=== PATIENT | male | born 1950 | race Hispanic/Latino ===

== ENCOUNTER → 2019-04-28 | Day surgery (SDC) | payer MEDICARE, OTHER ==
[2019-04-26 11:52] LABS: BASOPHILS % 0.4 % (0.0-1.0); EOSINOPHILS # (AUTO) 0.1 (0.0-0.4); EOSINOPHILS % 1.5 % (0.0-6.0); HEMATOCRIT 42.6 % (38.2-49.6); HEMOGLOBIN 13.1 g/dL (14.0-18.0); LYMPHOCYTES # (AUTO) 2.4 (1.0-3.2); LYMPHOCYTES % 30.6 % (18.0-39.1); MEAN CORPUSCULAR HEMOGLOBIN 25.4 pg (28-32); MEAN CORPUSCULAR HGB CONC 30.8 g/dL (31-35); MEAN CORPUSCULAR VOLUME 82.6 fL (81-99); MONOCYTES # (AUTO) 0.9 (0.2-0.8); MONOCYTES % 11.3 % (4.4-11.3); NEUTROPHILS # (AUTO) 4.4 (2.1-6.9); NEUTROPHILS % 55.7 % (38.7-80.0); PLATELET COUNT 205 x10e3/uL (140-360); RED BLOOD COUNT 5.16 x10e6/uL (4.3-5.7); RED CELL DISTRIBUTION WIDTH 15.8 % (11.7-14.4)
[2019-04-26 12:06] LABS: ALANINE AMINOTRANSFERASE 18 IU/L (0-55); ALBUMIN 3.8 g/dL (3.5-5.0); ALKALINE PHOSPHATASE 91 IU/L (40-150); BLOOD UREA NITROGEN 16 mg/dL (7-26); BUN/CREATININE RATIO 16 (6-25); CALCIUM 9.4 mg/dL (8.4-10.2); CARBON DIOXIDE 29 mmol/L (22-29); CHLORIDE 98 mmol/L (98-107); CREATININE, SERUM 0.98 mg/dL (0.72-1.25); EST GLOMERULAR FILTRATION RATE > 60 ML/MIN (60-); GLUCOSE 185 mg/dL (74-118); SODIUM 135 mmol/L (136-145)
[~2019-04-28] VITALS: Ht 160 cm; Wt 94.3 kg
[2019-04-28] VITALS (14 sets, daily range): BP systolic 103–132; BP diastolic 60–87
[~2019-04-28] MED LIST: ALPRAZOLAM 0.5 MG TAB ONE; ASPIRIN 325 MG TAB ONE; ASPIRIN EC81 MG PO; ATORVASTATIN CA20 MG PO; BIVALRIUDIN 250 MG/VIAL VIAL IV ONE; BUPROPION XL150 MG PO; BYDUREON BCISE SC; DIPHENHYDRAMINE HCL 25 MG CAP ONE; FENTANYL CITRATE/PF 100MCG/2 ML INJ ONE; FLOMAX0.4 MG PO; HEPARIN SOD/SOD CHLORIDE 2,000 ML ONE; HYZAAR 50-12.51 EACH PO; IOPAMIDOL 300MG/ML 100 ML INFUS..BTL IV ONE; Jardiance PO; LEXAPRO10 MG PO; LIDOCAINE HCL 2% LOCAL 20 ML VIAL ONE; METFORMIN HCL500 MG PO; METOPROLOL TART25 MG PO; MIDAZOLAM HCL 2 MG/2 ML VIAL ONE; OMEPRAZOLE20 MG PO; PIOGLITAZONE HC45 MG PO; PRASUGREL 10 MG TAB ONE; SODIUM CHLORIDE 0.9% 1000ML 1,000 ML ONE; SODIUM CHLORIDE 0.9% 50ML 50 ML ONE; WELLBUTRIN SR150 MG PO; [UNRECOGNIZED DRUG - OTHER] PO
--- OUTSIDE RECORDS SUMMARY | 2019-04-28 11:29 | XMS REPORT | Continuity of Care Document ---
Author Author [employer] Address Unknown Phone Unavailable Care Team Providers Care Ceramist Name Role Phone [employer] Unavailable Unavailable Problems Problem Status Onset Date Classification Date Reported Comments Source M25.519 Active 03/15/[address] [facility] Discharge Diagnosis: Foot abscess, right 01/15/2014 01/17/2014 [facility] ABSCESS Active 01/15/[address] [facility] Carotid endarterectomy (procedure) Resolved Problem 03/18/[address] [facility] Chest pain (finding) Active Problem 03/18/[address] [facility] Diabetes mellitus (disorder) Active Problem 03/18/[address] [facility] Hypertensive disorder, systemic arterial (disorder) Resolved Problem 03/18/[address] [facility] Open heart surgery (procedure) Resolved Problem 03/18/[address] [facility] Pain (finding) Active Problem 03/18/[address] [facility] Smoker (finding) Active Problem 03/18/[address] [facility] PAIN IN UNSPECIFIED SHOULDER Active [facility] Medications Medication Details Route Status Patient Instructions Ordering Provider Order Date Source Acetaminophen 325 MG / Hydrocodone Bitartrate 5 MG Oral Tablet [[place] 5/325] 1-2 tab, PO, Q4-6H, Pain, # 12 tab, 0 Refill(s) Active 01/15/[address] [facility] clindamycin 300 mg oral capsule 300 mg=1 cap, PO, Q6H, # 40 cap, 0 Refill(s) Active 01/15/[address] [facility] Morphine 4 mg, 1 mL, Route: IM, Drug form: INJ, ONCE, Dosing Weight 97.727, kg, Priority: STAT, Start date: 01/15/14 14:34:00, Stop date: 01/15/14 14:34:00Notes: (Same as:MORPhine Sulfate) Inactive 01/15/[address] [facility] Allergies, Adverse Reactions, Alerts Substance Category Reaction Severity Reaction type Status Date Reported Comments Source penicillins Assertion Drug allergy Active [facility] Immunizations No Data Provided for This Section Results Order Name Results Value Reference Range Date Interpretation Comments Source CHEM PANEL eGFR 64 01/15/2014 <sup>1</sup>Result Comment: The eGFR is calculated using the CKD-EPI formula. In most young, healthy individuals the eGFR will be >90 mL/min/1.73m2. The eGFR declines with age. An eGFR of 60-89 may be normal in some populations, particularly the elderly, for whom the CKD-EPI formula has not been extensively validated. Use of the eGFR is not recommended in the following populations:& lt;br/>
Individuals with unstable creatinine concentrations, including patients and those with serious co-morbid conditions.

Patients with extremes in muscle mass or diet.

The data above are obtained from the National Kidney Disease Education Program (NKDEP) which additionally recommends that when the eGFR is used in patients with extremes of body mass index for purposes of drug dosing, the eGFR should be multiplied by the estimated BMI. [facility] CHEM PANEL Chloride Lvl 102 95 - 109 01/15/[address] [facility] CHEM PANEL Potassium Lvl 4.3 3.5 - 5.1 01/15/[address] [facility] CHEM PANEL Sodium Lvl 135 135 - 145 01/15/[address] [facility] CHEM PANEL CO2 26 24 - 32 01/15/[address] [facility] CHEM PANEL Calcium Lvl 8.3 8.5 - 10.5 01/15/[address] [facility] CHEM PANEL Creatinine Lvl 1.2 0.5 - 1.4 01/15/[address] [facility] CHEM PANEL Glucose Lvl 334 70 - 99 01/15/2014 <sup>2</sup>Interpretive Data: Adult reference range values reflect the clinical guidelines
of the [place] [employer]. [facility] CHEM PANEL BUN 22 7 - 22 01/15/[address] [facility] CHEM PANEL AGAP 11.3 10.0 - 20.0 01/15/[address] [facility] HEMATOLOGY MCHC 34.5 32.0 - 36.0 01/15/[address] [facility] HEMATOLOGY MPV 9.0 7.4 - 10.4 01/15/[address] [facility] HEMATOLOGY Platelet 163 133 - 450 01/15/[address] [facility] HEMATOLOGY RDW 12.5 11.5 - 14.5 01/15/[address] [facility] HEMATOLOGY MCH 31.4 27.0 - 31.0 01/15/[address] [facility] HEMATOLOGY MCV 90.9 80.0 - 94.0 01/15/[address] [facility] HEMATOLOGY Hct 43.1 42.0 - 54.0 01/15/[address] [facility] HEMATOLOGY Hgb 14.9 14.0 - 18.0 01/15/[address] [facility] HEMATOLOGY RBC 4.74 4.70 - 6.10 01/15/[address] [facility] HEMATOLOGY WBC 7.9 3.7 - 10.4 01/15/[address] [facility] HEMATOLOGY Lymphocytes 27.0 20.0 - 40.0 01/15/[address] [facility] HEMATOLOGY Segs 63.8 45.0 - 75.0 01/15/[address] [facility] HEMATOLOGY Basophils # 0.0 0.0 - 0.2 01/15/[address] [facility] HEMATOLOGY Eosinophils # 0.1 0.0 - 0.5 01/15/[address] [facility] HEMATOLOGY Monocytes # 0.6 0.0 - 0.8 01/15/[address] [facility] HEMATOLOGY Lymphocytes # 2.1 1.0 - 5.5 01/15/[address] [facility] HEMATOLOGY Segs-Bands # 5.0 1.5 - 8.1 01/15/[address] [facility] HEMATOLOGY Basophils 0.5 0.0 - 1.0 01/15/[address] [facility] HEMATOLOGY Eosinophils 1.2 0.0 - 4.0 01/15/[address] [facility] HEMATOLOGY Monocytes 7.5 2.0 - 12.0 01/15/[address] [facility] Pathology Reports No Data Provided for This Section Diagnostic Reports Report Value Date Source Shoulder 2+ Views Bilateral DX Clinical Indication: - M25.519 Pain in unspecified shoulder; Comparison: None FINDINGS: Three views of the bilateral shoulder. RIGHT: No fracture or dislocation. The acromioclavicular joint and coracoclavicular spaces are intact. The acromion and coracoid processes appear unremarkable. The subacromial space is unremarkable. The visualized scapula and clavicle are unremarkable. There are no radiopaque foreign bodies or soft tissue swelling. LEFT: No fracture or dislocation. The acromioclavicular joint and coracoclavicular spaces are intact. The acromion and coracoid processes appear unremarkable. The subacromial space is unremarkable. The visualized scapula and clavicle are unremarkable. There are no radiopaque foreign bodies or soft tissue swelling. If there is further concern, followup radiographs or MRI of the shoulder may be performed for complete assessment. IMPRESSION: No significant radiographic abnormalities of either shoulder. SL: [id number] 03/15/[address] [facility] Consultation Notes No Data Provided for This Section Discharge Summaries No Data Provided for This Section History and Physicals No Data Provided for This Section Vital Signs Vital Sign Value Date Comments Source Systolic (mm Hg) 129 01/15/[address] [facility] Diastolic (mm Hg) 71 01/15/[address] [facility] Heart Rate 52 01/15/[address] [facility] Temperature Oral (F) 98.0 F 01/15/[address] [facility] Respitory Rate 18 01/15/[address] [facility] Heart Rate 56 01/15/[address] [facility] Temperature Oral (F) 97.8 F 01/15/[address] [facility] Diastolic (mm Hg) 76 01/15/[address] [facility] Systolic (mm Hg) 124 01/15/[address] [facility] BMI Calculated 35.85 01/15/[address] [facility] Height 165.1 cm 01/15/[address] [facility] Weight 97.727 01/15/[address] [facility] Encounters Location Location Details Encounter Type Encounter Number Reason For Visit Attending Provider ADM Date DC Date Status Source [facility] [id number] Cezar Painter 01/15/2014 01/15/2014 [facility] [id number] Niecy Valeracayo 03/15/2017 03/16/[address] [facility] Procedures No Data Provided for This Section Assessment and Plan No Data Provided for This Section Plan of Care No Data Provided for This Section Social History Social History Date Source Social History TypeResponse 03/16/[address] [facility] Family History No Data Provided for This Section Advance Directives No Data Provided for This Section Functional Status No Data Provided for This Section
--- OUTSIDE RECORDS SUMMARY | 2019-04-28 11:29 | XMS REPORT | Summary of Care ---
Author Organization Unknown Address Unknown Phone Unavailable Encounter COLLIN Gonsavles(VALERIE) [id number] Date(s): 01/15/14 - 01/15/[address] Discharge Diagnosis: Foot abscess, right Discharge Disposition: Home Physician Attending: Cezar Painter MD Reason for Visit ABSCESS Vital Signs Most recent to 1 2 oldest [Reference Range]: Height 165.1 cm (01/15/14 1:03 PM) Temperature Oral 98.0 DegF 97.8 DegF [96.4-99.1 DegF] (01/15/14 3:33 PM) (01/15/14 1:03 PM) Systolic Blood 129 mmHg 124 mmHg Pressure [90-140 (01/15/14 3:33 PM) (01/15/14 1:03 PM) mmHg] Diastolic Blood 71 mmHg 76 mmHg Pressure [60-90 (01/15/14 3:33 PM) (01/15/14 1:03 PM) mmHg] Respiratory Rate 18 BRMIN [14-20 BRMIN] (01/15/14 3:33 PM) Peripheral Pulse 52 bpm 56 bpm Rate [60-100 bpm] *LOW* *LOW* (01/15/14 3:33 PM) (01/15/14 1:03 PM) Weight 97.727 kg (01/15/14 1:03 PM) Body Mass Index 35.85 m2 (01/15/14 1:03 PM) Problem List Condition Effective Dates Status Health Status Informant Carotid Resolved endarterectomy(Confi rmed) Chest Active pain(Confirmed) Diabetes Active mellitus(Confirmed) DM - Diabetes Resolved mellitus(Confirmed) HTN - Resolved Hypertension(Confirm ed) Hypertension(Confirm Active ed) Open heart Resolved surgery(Confirmed) Pain(Confirmed) Active Smoker(Confirmed) Active Allergies, Adverse Reactions, Alerts Substance Reaction Severity Status penicillins Active Medications clindamycin 300 mg oral capsule 300 mg=1 cap, PO, Q6H, # 40 cap, 0 Refill(s) Start Date: 01/15/14 Stop Date: 01/25/14 Status: Ordered morphine Sulfate 4 mg, 1 mL, Route: IM, Drug form: INJ, ONCE, Dosing Weight 97.727, kg, Priority: STAT, Start date: 01/15/14 14:34:00, Stop date: 01/15/14 14:34:00 Notes: (Same as:MORPhine Sulfate) Start Date: 01/15/14 Stop Date: 01/15/14 Status: Completed [place] 5/325 oral tablet 1-2 tab, PO, Q4-6H, Pain, # 12 tab, 0 Refill(s) Start Date: 01/15/14 Stop Date: 01/20/14 Status: Ordered Results ELECTROLYTES Most recent to 1 oldest [Reference Range]: Sodium Lvl [135-145 135 mEq/L mEq/L] (01/15/14 2:28 PM) Potassium Lvl 4.3 mEq/L [3.5-5.1 mEq/L] (01/15/14 2:28 PM) Chloride Lvl [95-109 102 mEq/L mEq/L] (01/15/14 2:28 PM) CO2 [24-32 mEq/L] 26 mEq/L (01/15/14 2:28 PM) AGAP [10.0-20.0 11.3 mEq/L mEq/L] (01/15/14 2:28 PM) CHEM PANEL Most recent to 1 oldest [Reference Range]: Creatinine Lvl 1.2 mg/dL [0.5-1.4 mg/dL] (01/15/14 2:28 PM) eGFR 64 mL/min/1.73m2 1 *NA* (01/15/14 2:28 PM) BUN [7-22 mg/dL] 22 mg/dL (01/15/14 2:28 PM) Glucose Lvl [70-99 334 mg/dL 2 mg/dL] *HI* (01/15/14 2:28 PM) Calcium Lvl 8.3 mg/dL [8.5-10.5 mg/dL] *LOW* (01/15/14 2:28 PM) 1Result Comment: The eGFR is calculated using the CKD-EPI formula. In most young, healthy individuals the eGFR will be >90 mL/min/1.73m2. The eGFR declines with age. An eGFR of 60-89 may be normal in some populations, particularly the elderly, for whom the CKD-EPI formula has not been extensively validated. Use of the eGFR is not recommended in the following populations: Individuals with unstable creatinine concentrations, including patients and those with serious co-morbid conditions. Patients with extremes in muscle mass or diet. The data above are obtained from the National Kidney Disease Education Program ( NKDEP) which additionally recommends that when the eGFR is used in patients with extremes of body mass index for purposes of drug dosing, the eGFR should be mul tiplied by the estimated BMI. 2Interpretive Data: Adult reference range values reflect the clinical guidelines of the [place] [employer]. HEMATOLOGY Most recent to 1 oldest [Reference Range]: WBC [3.7-10.4 K/CMM] 7.9 K/CMM (01/15/14 2:28 PM) RBC [4.70-6.10 4.74 M/CMM M/CMM] (01/15/14 2:28 PM) Hgb [14.0-18.0 g/dL] 14.9 g/dL (01/15/14 2:28 PM) Hct [42.0-54.0 %] 43.1 % (01/15/14 2:28 PM) MCV [80.0-94.0 fL] 90.9 fL (01/15/14 2:28 PM) MCH [27.0-31.0 pg] 31.4 pg *HI* (01/15/14: PM) MCHC [32.0-36.0 34.5 g/dL g/dL] (01/15/14 2:28 PM) RDW [11.5-14.5 %] 12.5 % (01/15/14 2:28 PM) Platelet [133-450 163 K/CMM K/CMM] (01/15/14 2:28 PM) MPV [7.4-10.4 fL] 9.0 fL (01/15/14 2:28 PM) Segs [45.0-75.0 %] 63.8 % (01/15/14 2:28 PM) Lymphocytes 27.0 % [20.0-40.0 %] (01/15/14 2:28 PM) Monocytes [2.0-12.0 7.5 % %] (01/15/14 2:28 PM) Eosinophils [0.0-4.0 1.2 % %] (01/15/14 2:28 PM) Basophils [0.0-1.0 0.5 % %] (01/15/14 2:28 PM) Segs-Bands # 5.0 K/CMM [1.5-8.1 K/CMM] (01/15/14 2:28 PM) Lymphocytes # 2.1 K/CMM [1.0-5.5 K/CMM] (01/15/14 2:28 PM) Monocytes # [0.0-0.8 0.6 K/CMM K/CMM] (01/15/14 2:28 PM) Eosinophils # 0.1 K/CMM [0.0-0.5 K/CMM] (01/15/14 2:28 PM) Basophils # [0.0-0.2 0.0 K/CMM K/CMM] (01/15/14 2:28 PM) Medications Administered During Your Visit No data available for this section Immunizations No data available for this section Social History Social History Type Response
--- OUTSIDE RECORDS SUMMARY | 2019-04-28 11:29 | XMS REPORT | Summary of Care ---
Author Author [facility] Organization [facility] Address Unknown Phone Unavailable Encounter HQ Hilarior_deb(VALERIE) [id number] Date(s): 03/15/17 - 03/15/17 [facility] [address] [place] [address]- Discharge Disposition: Home or Self Care Attending Physician: Niecy Eagle MD Admitting Physician: Niecy Eagle MD Vital Signs No data available for this section Problem List Condition Effective Dates Status Health Status Informant Carotid Resolved endarterectomy(Confi rmed) Chest Active pain(Confirmed) Diabetes Active mellitus(Confirmed) DM - Diabetes Resolved mellitus(Confirmed) HTN - Resolved Hypertension(Confirm ed) Hypertension(Confirm Active ed) Open heart Resolved surgery(Confirmed) Pain(Confirmed) Active Smoker(Confirmed) Active Allergies, Adverse Reactions, Alerts Substance Reaction Severity Status penicillins Active Medications No data available for this section Results No data available for this section Immunizations No data available for this section Procedures No data available for this section Social History Social History Type Response Assessment and Plan No data available for this section
--- NOTE | 2019-04-28 13:30 | NUR ---
1330bedside report received from RN. Identifierx2.Alert oriented and appropriate, PERRLA, respirations even and unlabored to room air. Pulses x4 extremeties equal and strong. Pedal pulsesx4 palpable. Cap fill brisk < 3 sec. Skin warm and dry integrity appears . IV 20g to left hand infusing 100cchr via iv controller, presents healthy w/o s/s of infiltration or complaint. Abdomen soft and supple. pt offered toileting, denies need to urinate or defecate. No personal affects with patient. No Family at bedside friends only . Pt verbalizes understanding of POC. Currently w/o complaint of pain or need. Patient sats 89% low O2 applied at 2lnc Back to baseline orientation. Offered po intake. NO current issues pain,pallor,pressure or dysrhythmia. Rt Mynx closure device with no oozing or hematoma. ds/rn
--- NOTE | 2019-04-28 17:00 | NUR ---
1700 called Kamran Wilkinson to arrive to discuss POc and bring pt home at 1830 for 1700 dc time.Void 400cc qs ds/rn
--- NOTE | 2019-04-28 19:00 | NUR ---
1900Pt meets DC criteria. Rt mYnx site to groin assessed for s/s of complication and presence of hematoma. Skin warm, dry, no discolor, and pulses present. IV removed from rt hand. Distal tip appears intact. VS WNL. Pt denies pain, sob, or need at this time. Family arrived. Review of discharge paperwork and follow up instructions. verbalized understanding. Pt to wheelchair and transported to front of hospital. Transferred to private vehicle under own strength w/o incident with DC paperwork in hand. ds/rn
--- NOTE | 2019-05-02 19:26 | Operative Report ---
DATE OF PROCEDURE: 04/28/2019 SURGEON: Bora Richard MD INDICATIONS: Coronary artery disease, abnormal stress test, unstable angina. PROCEDURES PERFORMED: 1. Left heart catheterization, selective coronary angiography. 2. Stent placement in the proximal circumflex artery. 3. Deployment of right groin Mynx closure device. 4. Bilateral extracranial carotid angiograms. 5. Abdominal aortogram runoff to bilateral femoral arteries. COMPLICATIONS: None. RECOMMENDATIONS: Dual antiplatelet therapy for life. DESCRIPTION OF PROCEDURE: Access obtained in the right femoral artery. A 6-[place] sheath was placed. Coronary angiography demonstrated occluded stent in the left anterior descending artery. Left main had moderate disease. Circumflex proximal 90% mid, 60% to 70% obtuse marginal branch is occluded, 50% left posterior descending artery stenosis. Right coronary artery is codominant with diffuse 50% stenosis. Left internal mammary artery bypass to left anterior descending artery was widely patent. Saphenous vein bypass to obtuse marginal branch is widely patent. Bilateral extracranial carotid angiograms demonstrated bilateral 50% internal carotid artery stenosis. Abdominal aortogram runoff to bilateral femoral arteries demonstrated moderate peripheral arterial disease, mild disease in aorta and iliacs, moderate 50% stenosis in bilateral femoral popliteal vessels with one vessel runoff to both lower extremities. A decision was made to intervene on the circumflex artery. The patient received intravenous Angiomax for anticoagulation. The left main was cannulated using an XB 3.5, 6-[place] guiding catheter. Short wire was advanced across the lesion for support. Predilatation with a 12 mm balloon following which a single 3.5 x 60 mm [employer] Synergy stent was deployed at 18 atmospheres, excellent end result, less than 10% residual stenosis, CHELSY-3 flow. No complications. Right groin repaired using Mynx closure device. The patient discharged home same day. Bora Richard MD KSB/MODL /[id number]
== END | disposition home or self-care (01) ==
LOC: CATH LAB 11:26
PROVIDERS: ATTEND Internal Medicine Interventional Cardiology
DX: I25.110 Atherosclerotic heart disease of native coronary artery with unstable angina pectoris (principal); E11.51 Type 2 diabetes mellitus with diabetic peripheral angiopathy without gangrene; Z01.812 Encounter for preprocedural laboratory examination; Z88.0 Allergy status to penicillin; R09.89 Other specified symptoms and signs involving the circulatory and respiratory systems; E78.00 Pure hypercholesterolemia, unspecified; Z83.3 Family history of diabetes mellitus; Z82.49 Family history of ischemic heart disease and other diseases of the circulatory system; Z79.84 Long term (current) use of oral hypoglycemic drugs; Z79.82 Long term (current) use of aspirin
CPT/HCPCS: 36222; 75625; 93455; C9600; 36245; 36415; 75630; 80053; 85025; 92928; C1725; C1760; C1769; C1874; C1887; J0583; J2001; J2250; J3010; J7030; Q9967